=== PATIENT | female | born 1945 | race Caucasian/White ===

== ENCOUNTER 2020-08-13 01:48 | Emergency (ER) | payer OTHER, SELFPAY ==
--- NOTE | ~2020-08-13 | XR_ITS ---
XR shoulder LT min 2V DATE: 08/13/2020 02:22 INDICATION: Fall. Left shoulder pain. TECHNIQUE: 3 views COMPARISON: None FINDINGS: There is a comminuted fracture at the neck and proximal shaft of the left humerus, with 50% or greater lateral displacement of the distal humeral fracture fragment. There is diffuse prominent osteopenia. The cardiovascular clavicular and glenohumeral joints are intact. IMPRESSION: Comminuted fracture of neck and proximal shaft of left humerus Prominent osteopenia Reviewed, dictated and finalized at location A.
[2020-08-13 01:55] VITALS: BP 140/61; PULSE 78; RESP 18; TEMP 36.3; O2SAT 95
--- NOTE | 2020-08-13 01:55 | ED_ITS ---
HPI - Extremity Injury (Upper) General Chief Complaint: Extremity Injury, Upper Stated Complaint: shoulder pain History of Present Illness HPI narrative: 75 yo female with multiple medical comorbidities presents to the ED for an arm injury. She lost her balance while bending to pick something up. She fell to the side and struck her left shoulder on a door. She had severe pain in the left upper arm and was not able to get off the ground for 2 hours while she waited for her to get home. She cntinues to have severe pain and is not able to move the left shoulder. She did not hit her head in the fall. No change in chronic back pain Related Data Allergies Allergy/AdvReac Type Severity Reaction Status Date / Time amoxicillin AdvReac Unknown YEAST Verified 12/22/18 18:55 INFECTIONS Review of Systems Constitutional: Constitutional: Denies chills, Denies fever(s) and Denies weakness Eyes: Eyes: Reports no additional eye complaints Cardiovascular: Cardiovascular: Denies chest pain Respiratory: Respiratory: Denies dyspnea Gastrointestinal: Gastrointestinal: Denies nausea and Denies vomiting Genitourinary: Genitourinary: Reports no additional female genitourinary complaints Musculoskeletal: Musculoskeletal: Reports back pain (chronic) Neurologic: Denies dizziness, Denies syncope, Denies headache(s) and Denies weakness [facility] Family History Family History (Updated 11/23/15 @ 23:19 by DOCTOR UNKNOWN) Mother Family history of diabetes mellitus in first degree relative Social History Social History Gender identity (if verbalized by the patient): Female Course Vital Signs Vital signs: Vital Signs Temperature 36.3 C L 08/13/20 01:55 Pulse Rate 78 08/13/20 01:55 Respiratory Rate 18 08/13/20 01:55 Blood Pressure 140/61 08/13/20 01:55 Pulse Oximetry 95 08/13/20 01:55 Temperature 36.3 C L 08/13/20 01:55 Pulse Rate 74 08/13/20 03:02 Respiratory Rate 18 08/13/20 03:02 Blood Pressure 126/53 L 08/13/20 03:02 Pulse Oximetry 92 08/13/20 03:02 MDM - Extremity Injury (Upper) MDM Narrative Medical decision making narrative: Patient discussed with Dr. Mora. He would like her placed in a shoulder immobilizer and her will see her in clinic this week. Discharge Plan Discharge Clinical Impression: Fracture of proximal end of humerus Qualifiers: Encounter type: initial encounter Fracture type: closed Fracture morphology: other fracture Fracture alignment: displaced Laterality: left Qualified Code(s): S42.292A - Other displaced fracture of upper end of left humerus, initial e ncounter for closed fracture Patient Disposition: Home, Self-Care Condition: Stable Instructions: Proximal Humerus Fracture (ED) Follow-up/Referrals: Marcos Mora MD [Physician] - Logan Luu MD [Primary Care Provider] -
[2020-08-13 02:02] VITALS: BP 140/61; PULSE 76; O2SAT 96
[2020-08-13 03:02] VITALS: BP 126/53; PULSE 74; RESP 18; O2SAT 92
[2020-08-13] MEDS: MORPHINE SULFATE (*CRX) 4 MG/ML INJ IV PUSH (03:24)
== END 2020-08-13 04:00 | disposition home or self-care (01) ==
PROVIDERS: Emergency Provider Emergency Medicine; PCP Family Medicine Adolescent Medicine
DX: S42.352A Displaced comminuted fracture of shaft of humerus, left arm, initial encounter for closed fracture (principal); S42.292A Other displaced fracture of upper end of left humerus, initial encounter for closed fracture; W01.198A Fall on same level from slipping, tripping and stumbling with subsequent striking against other object, initial encounter
CPT/HCPCS: 73030; 96374; 99284; J2270

== ENCOUNTER 2020-10-26 08:37 | Outpatient (CLI) | payer OTHER, SELFPAY ==
--- NOTE | ~2020-10-26 | CT_ITS ---
EXAMINATION: CT shoulder LT wo con DATE: 10/26/2020 09:12 INDICATION: Proximal left humeral fracture TECHNIQUE: High resolution computed tomography (CT) of the left shoulder was performed without intrav enous contrast. Additional sagittal and coronal reconstructions were performed. Automated exposure co ntrol and iterative reconstruction technique were employed. The dose-length product was 597.03 mGy-cm . COMPARISON: None FINDINGS: Mild a comminuted fractures of the proximal metaphyseal metadiaphyseal region of the left humerus. Th ere is 40 degree posterior angulation of the oblique fracture plane. There is a small anterior sided butterfly fragment. There is negligible involvement of the posterior inferior most rim of the articul ar cortex. No involvement of the lesser greater tuberosities. There is a small amount of nonbridging callus formation along the margins of the fracture. The humeral head remains normally centered over t he left acetabulum. No other fractures identified. There is a small glenohumeral joint effusion with widening of the cephalad aspect of the glenohumeral joint space. Mild acromioclavicular osteoarthriti s. IMPRESSION: 1. Early nonbridging callus formation at the margins of a mildly comminuted oblique fracture of the p roximal metaphyseal and metadiaphyseal region of the left humerus with 40 degrees posterior angulatio n. Reviewed, dictated and finalized at location A. IMPRESSION: 1. Early nonbridging callus formation at the margins of a mildly comminuted obl ique fracture of the proximal metaphyseal and metadiaphyseal region of the left humerus with 40 degrees posterior angulation.
== END 2020-10-26 08:38 | disposition home or self-care (01) ==
PROVIDERS: PCP Family Medicine Adolescent Medicine; Visit Provider Orthopaedic Surgery
DX: S42.202D Unspecified fracture of upper end of left humerus, subsequent encounter for fracture with routine healing (principal)
CPT/HCPCS: 73200

== ENCOUNTER → 2021-03-20 11:08 | Outpatient (CLI) | payer OTHER, SELFPAY ==
--- NOTE | ~2021-03-20 | DEXA_ITS ---
Bone Density Report Name: BEV AHMADI Age: 75 Sex: Female Ethnicity: White Date of : 1945 Indication: postmenopausal; screening for osteoporosis; height loss; prior fracture; rheumatoid arthritis; Referring Provider: KEITH NUR Study: Bone densitometry was performed. Exam Date: March 20, 2021 Accession number: [id number] Bone Density: Region BMD T-score Z-score Classification AP Spine (L1-L4) 0.949 -0.9 1.5 Normal Femoral Neck (Left) 0.571 -2.5 -0.4 Osteoporosis Total Hip (Left) 0.803 -1.1 0.7 Osteopenia Femoral Neck (Right) 0.508 -3.1 -1.0 Osteoporosis Total Hip (Right) 0.746 -1.6 0.2 Osteopenia Total Hip Mean 0.775 -1.4 0.5 Osteopenia World Health Organization criteria for BMD impression classify patients as: Normal (T-score at or above -1.0), Osteopenia (T-score between -1.0 and -2.5), or Osteoporosis (T-score at or below -2.5). 10-year Fracture Risk: FRAX not reported because: Some T-score for Spine Total or Hip Total or Femoral Neck at or below -2.5 Clinical Information Provided by Patient: Has had a low trauma fracture Has rheumatoid arthritis Has used the following medications: Vitamin D Patient maximum height was 65 Menopause Age: 46 No regular weight bearing exercise Does not regularly consume dairy products Onset of menses at age 13 Number of children 2 Impression: The patient has established osteoporosis, based on the Right Femoral Neck T-score and the existence of a prior fracture. The patient has risk factors, including: previous fracture. Discussion: HIGH RISK OF FRACTURE. BONE DENSITY IS UNDESIRABLY LOW AT ONE OR MORE SKELETAL SITES, CONSISTENT WITH POSTMENOPAUSAL OSTEOPOROSIS. This patient's lowest T-score, in a patient who has previously fractured, meets the World Health Organization's (WHO) criteria for severe osteoporosis. In untreated patients, the risk of osteoporotic fracture increases approximately two-fold for each 1.0 SD decrease in T-score. Low bone density is not the only risk factor for fracture; also consider factors such as patient's age, frailty or poor health, risk of falling, risk of injury, previous osteoporotic fracture, family history of osteoporosis, cigarette smoking, low body weight, etc. Not everyone with low bone mineral density has osteoporosis; osteomalacia and other metabolic bone disorders should also be considered. Patients who have osteoporosis should be evaluated for specific diseases and conditions (secondary causes) that may cause or contribute to bone loss. The [place] [employer]ocr[employer] (AACE) and National Osteoporosis Foundation (NOF) recommend pharmacologic intervention for all postmenopausal women whose T-score is in this range. The patient should follow a healthful lifestyle (good nutrition with adequate c
== END ==
PROVIDERS: PCP Family Medicine Adolescent Medicine; Visit Provider Family Medicine Adolescent Medicine
DX: Z78.0 Asymptomatic menopausal state (principal); M81.0 Age-related osteoporosis without current pathological fracture; M85.852 Other specified disorders of bone density and structure, left thigh; M85.851 Other specified disorders of bone density and structure, right thigh
CPT/HCPCS: 77080

== ENCOUNTER → 2021-12-10 11:14 | Outpatient (CLI) | payer OTHER, SELFPAY ==
--- NOTE | ~2021-12-10 | US_ITS ---
US soft tissue head and neck 12/10/2021 11:32 Indication: Palpable area in the left neck Procedure: High-resolution ultrasound of the left neck Comparison: No prior studies for comparison. Findings: Normal heterogeneous echotexture throughout the left neck in the area of palpable concern. Impression: 1: Normal limited ultrasound of the left neck. No discrete mass identified. Reviewed, dictated and finalized at location B. Impression: 1: Normal limited ultrasound of the left neck. No discrete mass identified.
== END ==
PROVIDERS: PCP Family Medicine Adolescent Medicine; Visit Provider Physician Assistant
DX: R22.1 Localized swelling, mass and lump, neck (principal)
CPT/HCPCS: 76536

== ENCOUNTER → 2022-08-19 13:06 | Outpatient (CLI) | payer OTHER, SELFPAY ==
--- NOTE | ~2022-08-19 | MR_ITS ---
EXAMINATION: MR lumbar spine wo con DATE: 08/19/2022 14:10 INDICATION: Low back pain. Bilateral leg pain. TECHNIQUE: Magnetic resonance imaging (MRI) of the lumbar spine was performed without intravenous con trast. COMPARISON: None FINDINGS: There is 3 mm anterolisthesis of L4 on L5. There is a chronic compression fracture of T12 w ith 3/5 loss of height. There is severely decreased disc height at L1-L2 and mildly decreased disc he ight at L4-L5. There is ligamentum flavum hypertrophy at the disc levels from L1-L2 through L4-L5. Th e distal spinal cord signal intensity is normal. The conus medullaris is at T12-L1. The following dis c levels are specifically discussed: L1-L2: The disc is bulging and has an annular fissure. There is moderate right and mild left facet cary int osteoarthritis. There is mild bilateral neural foraminal stenosis. There is mild central canal st enosis. L2-L3: The disc is bulging. There is severe bilateral facet joint osteoarthritis. There is moderate b ilateral neural foraminal stenosis. There is mild central canal stenosis. L3-L4: The disc is bulging and has an annular fissure. There is severe bilateral facet joint osteoart hritis. There is moderate bilateral neural foraminal stenosis. There is severe central canal stenosis . L4-L5: The disc is bulging. There is severe bilateral facet joint osteoarthritis. There is moderate b ilateral neural foraminal stenosis. There is severe central canal stenosis. L5-S1: The disc does not extend beyond the endplate margin. There is severe bilateral facet joint ost eoarthritis. There is mild left neural foraminal stenosis. There is no central canal stenosis. IMPRESSION: 1. Severe lumbar spondylosis. Reviewed, dictated and finalized at location A.
== END ==
PROVIDERS: PCP Family Medicine Adolescent Medicine; Visit Provider Family Medicine Adolescent Medicine
DX: M54.31 Sciatica, right side (principal); M47.816 Spondylosis without myelopathy or radiculopathy, lumbar region
CPT/HCPCS: 72148

== ENCOUNTER 2024-09-29 07:58 | Emergency (ER) | payer OTHER, SELFPAY ==
--- NOTE | ~2024-09-29 | CT_ITS ---
EXAMINATION: CT abdomen pelvis w con DATE: 09/29/2024 11:10 INDICATION: Lower abdominal pain TECHNIQUE: Computed tomography (CT) of the abdomen and pelvis was performed without intravenous contr ast. The dose-length product was 1325.55 mGy-cm. Automated exposure control and iterative reconstruct ion technique were employed. COMPARISON: 12/22/2018 FINDINGS: Lung bases are unremarkable. Trace pericardial effusion. Heart size is normal. No significa nt pleural effusion. There is cirrhosis of the liver. The spleen, pancreas, left kidney are unremarka ble. There is a 4-5 mm nonobstructing right renal stone. There are cholecystectomy clips. No ureteral stones or hydronephrosis. There are small bilateral adrenal masses unchanged, consistent with benign adenomas. No free air or free fluid. Colonic diverticulosis without evidence for diverticulitis. The re is pelvic floor relaxation. No significant vascular abnormality. No lymphadenopathy. There is a ch ronic burst fracture of T12. There is severe lower thoracic and lumbar spondylosis. IMPRESSION: 1. Nonobstructing right nephrolithiasis. 2: Trace pericardial effusion. 3.: Cirrhosis of the liver. 4: Stable small adrenal adenomas. Reviewed, dictated and finalized at location A.
--- NOTE | ~2024-09-29 | XR_ITS ---
EXAMINATION: XR chest 2V DATE: 09/29/2024 11:31 INDICATION: Shortness of breath TECHNIQUE: frontal and lateral views of the chest were obtained. COMPARISON: 05/18/2017 FINDINGS: The lungs are clear with no focal airspace opacities, pulmonary edema, pleural effusion or pneumothor ax. The cardiomediastinal silhouette is normal. Chronic nonunion of a chronic fracture at the surgica l neck of the left humerus with prominent ostial lysis at the central aspect of the humeral head seco ndary to the pseudoarthrosis with the distal fragment. IMPRESSION: 1. No acute cardiopulmonary disease. 2. 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 Reviewed, dictated and finalized at location A. IMPRESSION: 1. No acute cardiopulmonary disease. 2. 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
[2024-09-29 07:52] VITALS: BP 158/79; PULSE 84; RESP 13; TEMP 36.8; O2SAT 97
--- NOTE | 2024-09-29 08:00 | ECG_ITS ---
Test Date: 2024-09-29 08:02:06 Measurements Intervals [place] Rate: 85 P: 52 NM: 164 QRS: 62 QRSD: 121 T: 26 QT: 361 QTc: 431 Interpretive Statements SINUS RHYTHM RIGHT BUNDLE BRANCH BLOCK BASELINE ARTIFACT- I, II, III, AVR, AVL, AVF, V4 ABNORMAL ECG No previous ECG available for comparison Electronically Signed On 09-29-2024 08:35:28 CDT by Hosea Flores D.O.
[2024-09-29 08:42] LABS: Basophils Percent Auto 0.7 % (0.2-1.2); Eosinophils Absolute Auto 0.1 K/mm3 (0-0.3); Eosinophils Percent Auto 1.8 % (0-4.4); Hematocrit 40.5 % (37.0-47.0); Immature Granulocyte Absolute 0.01 K/mm3 (0.00-0.031); Immature Granulocyte Percent A 0.2 % (0-0.5); Immature Platelet Fraction Pct 4.2 % (0.9-11.2); Lymphocytes Absolute Auto 1.41 K/mm3 (0.9-3.2); Lymphocytes Percent Auto 31.3 % (18.3-44.2); Mean Corpuscular HGB Conc 32.1 g/dl (32-36); Mean Corpuscular Volume 93.3 fl (80-100); Mean Platelet Volume 10.7 fl (7.4-10.4); Monocytes Absolute Auto 0.3 K/mm3 (0.1-0.6); Monocytes Percent Auto 6.4 % (2.6-8.5); Neutrophils Absolute Auto 2.7 K/mm3 (1.3-6.7); Neutrophils Percent Auto 59.6 % (45.5-73.1); Platelet Count Result 130 k/mm3 (150-375); Red Blood Count 4.34 M/mm3 (4.2-5.4); Red Cell Distribution Width 12.7 % (11.5-14.5); White Blood Count 4.5 K/mm3 (4.5-10.0)
[2024-09-29 08:49] LABS: Alanine Aminotransferase 25 U/L (6-35); Albumin Level 4.4 g/dL (3.5-5.1); Alkaline Phosphatase 123 U/L (38-126); Anion Gap 7 mmol/L (4-12); Aspartate Amino Transferase 36 U/L (14-36); Blood Urea Nitrogen 23 mg/dL (7-17); Calcium 10.3 mg/dL (8.4-10.2); Carbon Dioxide 27 mmol/L (22-30); Chloride 101 mmol/L (98-107); Estimated CRCL calculation 51 ml/min; Estimated Glomerular Filt Rate > 60; Glucose 201 mg/dL (65-110); Potassium 4.2 mmol/L (3.4-5.0); Sodium 135 mmol/L (137-145); Total Protein 7.7 g/dL (6.3-8.2)
[2024-09-29 09:03] VITALS: BP 150/67; PULSE 91; RESP 12; O2SAT 98
[2024-09-29 09:06] LABS: Partial Thromboplastin Time 24.9 Seconds (22.3-36.8)
[2024-09-29 09:10] LABS: Add Urine Microscopic? YES; Appearance Urine Clear (Clear); Bacteria Urine None Seen /hpf; Bilirubin Urine Negative (Negative); Blood Urine Negative (Negative); Color Urine Yellow (Yellow); Glucose Urine UA Negative (Negative); Ketones Urine 1+ mg/dL (Negative); Leukocyte Esterase Ur Trace LEU/UL (Negative); Nitrate Urine Negative (Negative); Non Pathogenic Casts 0-2; Protein Urine Negative (Negative); RBC Urine 0-2 /hpf (0-2); Specific Grav Ur 1.014 (1.001-1.035); Squamous Epithelial Cell Urine None Seen /hpf (Few); Urobilinogen Urine 0.2 mg/dL (<2.0); WBC Urine 0-5 /hpf (0-3)
--- OUTSIDE RECORDS SUMMARY | 2024-09-29 09:39 | XMS_ITS | Referral Summary ---
Author Organization [facility] Address [address] [place] [address] Care Team Providers Care Machine Room Operator Name Role Phone Logan Luu MD Primary Care Prov ider Allergies No known active allergies Medications HYDROcodone-ivett taminophen (NORCO) 7.5-325 mg per tablet take 1 tablet by oral route every 8 hours as needed for pain 0 0 5 Active metoprolol XL (TOPROL-XL) 100 mg 24 hr tablet take 1 tablet by oral route every day 0 0 5 Active atorvastatin (LIPITOR) 40 mg tablet take 1 tablet by oral route every day 0 0 5 Active cholecalciferol (VITAMIN D3) 2,000 unit capsule take one daily 0 0 5 Active vit C-vit A-bczytq-kyfi-l utein (PRESERVISION LUTEIN) 226 mg-200 unit -5 mg-0.8 mg capsule take one daily 0 0 7 Active metFORMIN XR (GLUCOPHAGE XR) 500 mg 24 hr tablet Take 1,000 mg by mouth 2 (two) times a day 3 7 Active BD INSULIN PEN NEEDLE UF MINI 31 gauge x 3/16 needle USE BID UTD 3 7 Active levothyroxine (SYNTHROID, LEVOTHROID) 50 mcg tablet Take 50 mcg by mouth manager legal before breakfast. Active clotrimazole 1 % creamIndication s:Tinea corporis Apply topically 2 (two) times a day 30 g 03/13/201 9 Active hydroCHLOROthia zide (HYDRODIURIL) 25 mg tablet Take 25 mg by mouth daily Active Contour Next Test Strips strip U D 0 Active folic acid (FOLVITE) 1 mg tablet Take 1 tablet (1 mg total) by mouth daily 90 tablet 3 0 Active insulin glargine U-300 conc (Toujeo SoloStar U-300 Insulin) 300 unit/mL (1.5 mL) insulin pen 77 Units nightly 0 Active methotrexate 2.5 mg tablet TAKE 8 TABLETS BY MOUTH ONCE A WEEK 96 tablet 0 Active Active Problems Problem Noted Date Diagnosed Date Advice given about 2019 novel coronavirus by tel carmencita 08/10/2019 Assessment & Plan (11/07/2019 10:25 PM CDT): You may review the current [employer] [place] [employer] Covid-19 clinical guidance for Patients with Rheumatic Diseases if you copy and paste the link below into your web browser: [email or web address] [email or web address] Of course, methotrexate should be placed on hold in the event you were to become ill and resumed only after complete recovery. Assessment & Plan (08/10/2019 5:27 PM CDT): The full impact of autoimmune disease and immunomodulatory medications on susceptibility and complications of coronavirus disease is not yet studied. Because we have agronomy teacher with this new virus we do not currently have absolute answers. Currently we are not making a blanket recommendation that all patients stop their medications during this period of uncertainty. We do not want to risk letting your disease flare, as treating a flare during this health care crisis is more difficult as well due to the immunosuppressive effects of steroids. The usual CDC precautions for minimizing coronavirus risk are appropriate. Frequently wash your hands with soap and water for at least 20 seconds. When soap and running water are unavailable, use an alcohol-based hand rub with at least 60% alcohol. Always wash hands that are visibly soiled. Avoid touching your eyes, nose, or mouth with unwashed hands. Avoid close contact with people who are sick and maintain social distancing. The CDC has recommended that ALL persons wear a fabric mask when out in public. Obviously this is a fast-moving issue and the CDC is providing regular updates as the course and extent of the epidemic is monitored. You may keep up to date at the CDC website: www.coronavirus.gov You may also find more information relevant to your questions at the [employer] webpage: arthritis.org. Click on the Coronavirus banner. It is imperative that you adhere to the [id number] orders issued for your community, especially in view of your potentially immunocompromised status. Feel free to reach out to us if you have additional questions after you review this information. Systolic murmur 05/04/2019 Assessment & Plan (05/04/2019 11:39 AM EQUIPMENT MAINTENANCE TECH): 2/6 systolic murmur appreciated; somewhat louder than previously. She has not had an echocardiogram anytime recently. History of childhood rheumatic fever reported. Schedule echocardiogram for evaluation. Encounter for administration of vaccine 01/13/20 19 Class 2 severe obesity due t o excess calories with serious comorbidity and body mass index (BMI) of 38.0 to 38.9 in adult 01/12/2019 Assessment & Plan (05/04/2019 11:27 AM EQUIPMENT MAINTENANCE TECH): An optimal BMI (body mass index) is between 20 and 25. Encourage weight loss. Each pound of weight lost unloads 3-4 pounds per square inch pressure from weight bearing joints. Diet and exercise are the keys to weight management. Assessment & Plan (01/12/2019 3:17 PM CDT): As above Type 2 diabetes mellitus wit hout complication, with long-term current use of insulin 07/07/2018 Assessment & Plan (11/07/2019 10:27 PM CDT): Management per Dr. Shepherd. Patient reports glycemic control satisfactory. Assessment & Plan (08/10/2019 5:28 PM CDT): Management per Dr. Logan Shepherd. Assessment & Plan (05/04/2019 11:35 AM EQUIPMENT MAINTENANCE TECH): Diabetic control satisfactory per Dr. Shepherd. Patient does not recall A1C result. Assessment & Plan (10/05/2018 12:00 PM CDT): Management per Dr. Shepherd Tinea corporis 07/07/2018 Assessment & Plan (07/25/2018 8:56 PM CDT): Right ankle red scaly oval/circular rash. -Apply Clotrimazole as directed. Make sure to rub it in well. Keep using medication for a week after you no longer see the rash to make sure it's completely gone. -Keep skin clean and dry. Fungus likes to grow in moist skin -Wash all of your clothes, bedding and towels that may have come in contact with infection Bilateral lower extremity edema 07/07/2018 Assessment & Plan (07/25/2018 8:35 PM CDT): -Wear compression stockings daily. -Restrict sodium intake. -Elevate legs above the level of your heart several times a day. Putting pillows under your legs while you sleep may be helpful. Primary osteoarthritis involving multiple joints 04/05/2018 Stenosing tenosynovitis of finger of right hand 09/15/2017 Assessment & Plan (09/15/2017 11:39 AM CDT): X-ray and steroid injection if symptoms progress (patient declines with present symptom level). Injury of left hand 05/22/2017 Assessment & Plan (05/22/2017 10:34 AM EQUIPMENT MAINTENANCE TECH): Fell from porch steps 05/16/2017. Suspected contusion bone; xray ordered to rule out fracture. Osteopenia of multiple sites 02/12/2017 Assessment & Plan (11/07/2019 10:27 PM CDT): Recommend update DEXA (bone density). Order provided for imaging at [facility]. Assessment & Plan (05/22/2017 10:33 AM EQUIPMENT MAINTENANCE TECH): Continue Vitamin D and calcium supplements. Recommend to start alendronate ( Fosamax) as soon as dental issues addressed. Assessment & Plan (03/26/2017 4:38 PM EQUIPMENT MAINTENANCE TECH): Discussed recent DEXA findings reported By Dr. Shepherd and his recommendations to start alendronate. Discussed bisphosphonate risk/benefit profile. She will see her dentist to rule out any major dental issues before starting Rx. Recent 25 OH Vitamin D satisfactory. Continue calcium and vitamin D. Encounter for long-term (cur rent) use of high-risk medication 11/11/2016 Assessment & Plan (11/07/2019 10:25 PM CDT): Lab Results Component Value Date WBC 8.6 09/14/2019 HGB 12.9 09/14/2019 HCT 39.9 09/14/2019 MCV 92.8 09/14/2019 LABPLAT 126 (L) 09/14/2019 Chemistry Lab Results Component Value Date SODIUM 140 09/14/2019 POTASSIUM 4.5 09/14/2019 CHLORIDE 98 09/14/2019 CO2 29 09/14/2019 ANIONGAP 13 09/14/2019 BUNSER 15 09/14/2019 CREATININE 0.61 09/14/2019 GLUCOSE 158 09/14/2019 URICACID 5.8 09/01/2014 CALCIUM 10.4 (H) 09/14/2019 CALCIUM 9.8 05/28/2017 BILITOT 0.9 09/14/2019 PROTEIN 7.4 05/28/2017 ALBUMIN 4.6 09/14/2019 ALBUMIN 3.9 05/28/2017 GFRNAA 89 09/14/2019 ALKPHOS 107 09/14/2019 AST 28 09/14/2019 ALT 33 09/14/2019 Lab Results Component Value Date SEDRATE 38 (H) 09/14/2019 Lab Results Component Value Date CRP 4.5 09/14/2019 Lab Results Component Value Date RF 8 11/11/2016 SEDRATE 38 (H) 09/14/2019 Patient on medications requiring periodic lab monitoring for drug safety. Update lab as per orders written. Assessment & Plan (08/10/2019 5:27 PM CDT): Lab Results Component Value Date WBC 9.2 05/04/2019 HGB 12.5 05/04/2019 HCT 39.5 05/04/2019 MCV 97.5 (H) 05/04/2019 LABPLAT 145 (L) 05/04/2019 Chemistry Lab Results Component Value Date SODIUM 141 05/04/2019 POTASSIUM 4.6 05/04/2019 CHLORIDE 100 05/04/2019 CO2 29 05/04/2019 ANIONGAP 12 05/04/2019 BUNSER 15 05/04/2019 CREATININE 0.58 (L) 05/04/2019 GLUCOSE 93 05/04/2019 URICACID 5.8 09/01/2014 CALCIUM 10.2 05/04/2019 CALCIUM 9.8 05/28/2017 BILITOT 0.9 05/04/2019 PROTEIN 7.4 05/28/2017 ALBUMIN 4.2 05/04/2019 ALBUMIN 3.9 05/28/2017 GFRNAA 91 05/04/2019 ALKPHOS 139 (H) 05/04/2019 AST 35 05/04/2019 ALT 29 05/04/2019 Lab Results Component Value Date SEDRATE 65 (H) 05/04/2019 Lab Results Component Value Date CRP 6.1 05/04/2019 Patient on medications requiring periodic lab monitoring for drug safety. Update lab as per orders written. Assessment & Plan (05/04/2019 11:28 AM EQUIPMENT MAINTENANCE TECH): Patient on immunosuppressive medications requiring periodic lab monitoring for drug safety. Update lab as per orders written. Assessment & Plan (01/12/2019 3:13 PM CDT): Patient on immunosuppressive medications requiring periodic lab monitoring for drug safety. Assessment & Plan (10/05/2018 11:59 AM CDT): Patient on immunosuppressive medications requiring periodic lab monitoring for drug safety. Update lab as per orders written. Assessment & Plan (07/25/2018 8:36 PM CDT): Patient on immunosuppressive medications requiring periodic lab monitoring for drug safety. Assessment & Plan (04/05/2018 11:48 AM EQUIPMENT MAINTENANCE TECH): Patient on immunosuppressive medications requiring periodic lab monitoring for drug safety. Update lab as per orders written. Assessment & Plan (01/04/2018 11:33 AM CDT): Patient on immunosuppressive medications requiring periodic lab monitoring for drug safety. Assessment & Plan (09/15/2017 11:33 AM CDT): Patient on immunosuppressive medications requiring periodic lab monitoring for drug safety. Update lab as per orders written. Assessment & Plan (05/22/2017 10:34 AM EQUIPMENT MAINTENANCE TECH): Patient on immunosuppressive medications requiring periodic lab monitoring for drug safety. Update lab as per orders written. Assessment & Plan (03/26/2017 4:35 PM EQUIPMENT MAINTENANCE TECH): Patient on immunosuppressive medications requiring periodic lab monitoring for drug safety. Update lab as per orders written. Assessment & Plan (11/11/2016 10:57 AM CDT): Patient on immunosuppressive medications requiring periodic lab monitoring for drug safety. Update lab as per orders written. Hypothyroidism due to acquired atrophy of thyroi d 01/25/2016 Overview (07/31/2016): Hypothyroidism Assessment & Plan (11/07/2019 10:26 PM CDT): Lab Results Component Value Date TSH 2.79 05/04/2019 Assessment & Plan (05/04/2019 11:29 AM EQUIPMENT MAINTENANCE TECH): Lab Results Component Value Date TSH 3.67 01/25/2016 Update lab as per orders. Assessment & Plan (10/05/2018 11:59 AM CDT): Lab Results Component Value Date TSH 3.67 01/25/2016 Assessment & Plan (02/03/2018 2:39 PM CDT): Recently started on levothyroxine Rheumatoid arthritis without rheumatoid factor, multiple sites 10/11/2014 Overview (04/05/2018): Images from the original note were not included. Extremity Sonography September 28, 2014, 15:20 at [facility] Final View Details MICHAEL TREJO M.D. FINAL REPORT ACC# Date Time Exam [id number] Sep 28, 2014 15:20:00 [id number] Extremity Sono Complete L [id number] Sep 28, 2014 15:20:00 [id number] Extremity Sono Complete R EXAMINATION: Bilateral extremity sonogram complete. HISTORY: 69-year-old female with a several month history of hand and wrist swelling. FINDINGS: Right hand and wrist: There is moderate synovial hypertrophy of extensor compartment 4, the radioulnar joint overlying the ulna, the extensor carpi ulnaris tendon sheath, the proximal and mid compartments as well as mild to moderate synovial hypertrophy of the second and third MCP joints. The PIP joints appear normal. There is a bony erosion of the second MCP head. There are scattered bony irregularities some of which may represent tiny erosions.. There is mild to moderate increased flow on color Doppler of most of the above described areas consistent with tenosynovitis and synovitis. Left hand and wrist: There is moderate synovial hypertrophy of extensor compartment 4, the left extensor carpi ulnaris tendon sheath, the proximal and mid compartments as well as mild to moderate synovial hypertrophy of the second and third MCP joints. PIP joints appear normal. There are scattered bony represent tiny erosions. There is mild to moderate increased flow on color Doppler of the above described areas consistent with tenosynovitis and synovitis IMPRESSION: Sonographic findings consistent with tenosynovitis and synovitis involving both hands and wrists. Scattered bony irregularities and erosions. Requested By: Dictated By: MICHAEL TREJO M.D. on Sep 28 2014 3:54PM Assessment & Plan (11/07/2019 10:24 PM CDT): RA clinically stable since resuming methotrexate. She feels her symptoms adequately controlled (she has resumed bowling) though she has continued synovitis visible on exam (L>R hand/wrist noted). She does not want to pursue additional antirheumatic therapy (biologic response modifier) at this time though we have discussed and recommended same in the past. We did review today ACR evidence-based guidelines regarding continued treatment in the setting of the COVID-19 pandemic. Se denies medication side effects associated with methotrexate. Patient denies fever, rash, aphthous ulcers, dry eyes, dry mouth, hair loss, dysphagia, pleurisy, shortness of breath, nausea, vomiting, diarrhea, dysuria, hematuria, seizures, syncope, Raynaud's. Clinically stable on present med regimen. Continue same. Update lab as per orders. Assessment & Plan (08/10/2019 5:26 PM CDT): RA clinically stable. She has been off of methotrexate the last two weeks as she misunderstood our recommendations that additional medications would be needed to imply that methotrexate was ineffective. She will resume same until we can make further med adjustments. [facility] declined to approve her recommended follow up ultrasound hands and wrists, though we have advised that documentation of progressive erosive changes or worsened synovitis would impact our decision-tree regarding additional immunomodulatory therapies (likely a biologic respone modifier). For the time being, in view of the current Covid-19 pandemic will defer additional immunosuppressive therapies. She will resume methotrexate 20 mg weekly. We will update lab and imaging as per orders. X-rays of the hands/wrists ordered as a potential tool to address the question of progressive erosions likely with appeal for ultrasound or MRI hands if further documentation required. Patient understands same. She is currently scheduled for MR lumbar spine and echocardiogram 09/14/2019 and will defer today's lab and imaging orders until that date to allow the peak of the Covid-19 surge to pass and subside. Assessment & Plan (05/04/2019 11:37 AM EQUIPMENT MAINTENANCE TECH): Seronegative rheumatoid arthritis clinically stable on current methotrexate regimen. No med side effects reported. Rapid3 14.7 (skewed by pain associated with lumbar degenerative disc disease; see below). Update lab as per orders. . Continue current med regimen unchanged. Assessment & Plan (01/12/2019 3:16 PM CDT): RA clinically stable on current medication regimen. Denies medication side effects. Ongoing low pain (DDD). Unable to do physical therapy due to finances and lack of transportation. Reviewed exercises she can do at home. Rapid3:12.7. Seasonal influenza vaccine administered today. Assessment & Plan (10/05/2018 11:58 AM CDT): Scheduled follow up rheumatoid arthritis. Generally feels well. No med side effect reported. Rapid3 18.7 skewed by lower back pain radiating to both legs. Synovitis stable on exam. Update lab as per orders. Continue current methotrexate 20 mg (8 x 2.65 mg tab) weekly and folic acid 1 mg daily. Assessment & Plan (07/25/2018 8:52 PM CDT): Rheumatoid arthritis follow up clinically stable on current medication regimen. No side effects reported. Rapid3: 13.7, accelerated by DDD of the lumbar spine. Continue present regimen. Assessment & Plan (04/05/2018 11:50 AM EQUIPMENT MAINTENANCE TECH): Scheduled follow up rheumatoid arthritis. Generally feels well. No med side effect reported. Clinically stable. Continue same. Assessment & Plan (02/03/2018 2:37 PM CDT): Rheumatoid arthritis follow up with continued improvement on current medication regimen. No side effects reported. Rapid3: 10.3, score skewed by DDD of the lumbar spine. Continue present regimen. Assessment & Plan (09/15/2017 11:31 AM CDT): Scheduled follow up rheumatoid arthritis. Generally feels well. No med side effect reported. Rapid3 17.3. Pain score escalated by degenerative disc disease lumbar spine. Notes occasional hot flashes since methotrexate dose increased to 20 mg weekly. Tolerates same. Assessment & Plan (05/22/2017 10:32 AM EQUIPMENT MAINTENANCE TECH): Seronegative RA with continued synovitis MCP, PIP. Increase methotrexate to 8 x 2.5 mg tab weekly (20 mg weekly). Continue hydroxychloroquine. Update lab today with repeat lab again 1 month. Assessment & Plan (03/26/2017 4:36 PM EQUIPMENT MAINTENANCE TECH): Improving with recent addition methotrexate. Rapid3 14.8. Increase methotrexate to 15 mg weekly (6 x 2.5 mg tab once weekly). Continue folic acid. Reduce hydroxychloroquine as previously advised to 200 mg daily. Assessment & Plan (02/12/2017 10:33 AM CDT): Continued synovitis on exam. Currently on hydroxychloroquine only. Intolerant sulfasalazine. Will reevaluate possible additional DMARD therapy. Possible methotrexate if liver enzymes stable (history of fatty liver). Otherwise may need consider a TNF inhibitor. .METHOTREXATE PATIENT INFORMATION Methotrexate is one of the most effective and commonly used medications in the treatment of rheumatoid arthritis and other forms of inflammatory arthritis, and also may be used to treat lupus, inflammatory myositis, vasculitis, and some forms of childhood arthritis. It is often used in combination with other medications to treat arthritis. It is known as a disease-modifying anti-rheumatic drug (DMARD), because it not only decreases the pain and swelling of arthritis, but it also can decrease damage to joints and long-term disability HOW TO TAKE IT: Methotrexate comes either as pills or as a subcutaneous injection. Methotrexate is usually taken as a single dose once per week, although occasionally the dose is split into two doses, taken once per week, to improve absorption or avoid side effects. Your doctor also may prescribe a folic acid (or folate) vitamin supplement to decrease the chance of side effects. Methotrexate should not be taken if kidney or liver function is not normal. Alcohol significantly increases the risk for liver damage while taking methotrexate, so alcohol should be avoided. Regular laboratory monitoring is required to monitor blood counts and your liver while taking methotrexate. Improvements in arthritis and other conditions usually are first seen in three - six weeks. The full benefit of this drug may not be seen until after 12 weeks of treatment. SIDE EFFECTS: Methotrexate can lower the ability of your immune system to fight infections. If you develop symptoms of an infection while using this medication, you should stop it and contact your doctor. The most common side effects are gastrointestinal upset and elevations of liver function tests. About 1 - 3% of patients develop mouth sores (called stomatitis), rash, diarrhea, and abnormalities in blood counts. Some side effects do not cause symptoms, so it is important to have routine blood tests performed every 8 - 12 weeks. Methotrexate may cause cirrhosis (scarring) of the liver, but this side effect is rare and most likely to occur in patients who already have liver problems or are using alcohol or taking other drugs that are toxic to the liver. Lung problems (persistent cough or unexplained shortness of breath) can occur rarely when taking methotrexate. Slow hair loss is seen in some patients, but hair grows back when the person stops taking this medication. This can often be managed by taking folic acid. It is important to remember that most patients do not experience side effects, and that, for those who do, many of the minor side effects will improve with time. TELL YOUR DOCTOR: You should contact your doctor of you develop symptoms of an infection, such as a fever or cough, or if you think you are having any side effects. Be sure to let your doctor know if you are , planning to get , or if you are . Methotrexate treatment should be discontinued for at least three months before attempting to become . Even though methotrexate should not be taken during , it does not reduce a woman s chance of becoming in the future. Men taking methotrexate should talk to their physician prior to attempts to conceive. If you are planning on having surgery or will be receiving chemotherapy or radiation therapy, talk to your doctor first. Updated June 2016 by Marcos Ferris MD and reviewed by the [employer] [place] [employer] Committee on Communications and MarketingThis patient fact sheet is provided for general education only. Individuals should consult a qualified health care provider for professional medical advice, diagnosis and treatment of a medical or health condition. 2017 [employer] [place] [employer] - See more at: [email or web address] TNF INHIBITOR PATIENT INFORMATION: TNF inhibitors are a type of drug used worldwide to treat inflammatory conditions such as rheumatoid arthritis (RA), psoriatic arthritis, juvenile arthritis, inflammatory bowel disease (Crohn s and ulcerative colitis), ankylosing spondylitis, and psoriasis. They reduce inflammation and stop disease progression by targeting an inflammation-causing substance called Tumor Necrosis Factor (TNF). In healthy individuals, excess TNF in the blood is blocked naturally, but in those who have rheumatic conditions, higher levels of TNF in the blood lead to more inflammation and persistent symptoms. They can alter a disease s effect on the body by controlling inflammation in the joints, gastrointestinal tract, and skin. There are different TNF inhibitors that have been approved by the U.S. Food and Drug Administration for the treatment of rheumatic diseases. To decrease side effects and costs, most patients with mild or moderate disease may be treated with methotrexate before adding or switching to a TNF inhibitor. These agents can be used by themselves or in combination with other medications such as prednisone, methotrexate, hydroxychloroquine, leflunomide, or sulfasalazine. HOW TO TAKE IT: TNF inhibitors may be given by injection under the skin or by infusion into the vein. There are pamphlets and videos that can teach you how to give yourself an injection under the skin. Physicians, nurses, and pharmacists can also teach you how to give the injection. The medicine can be injected into the thigh or abdomen. The site of injection should be rotated so the same site is not used multiple times. Infliximab and golimumab infusions are administered at a doctor s office or an infusion center. These treatments take up to four hours. The time that it takes for the medication to have an effect may vary by patient. Most patients have reported a change in their symptoms after two or three doses, but it usually takes three months to see the full benefit. SIDE EFFECTS: The most common side effect seen with the injectable drugs are skin reactions, commonly referred to as i njection site reactions. The patients usually complain of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
--- OUTSIDE RECORDS SUMMARY | 2024-09-29 09:39 | XMS_ITS | Encounter Summary ---
Author Organization [facility] Healthcare Address [address] [place] [address] Care Team Providers Care Last Cleaner Name Role Phone Logan Luu MD Primary Care Prov ider Reason for Visit * Reason Onset Date Comments Prescreening 09/12/2019 1. no 2. no 4. n o Encounter Details Date Type Department Care Team (Late st Contact Info) Description 09/12/2019 Telephone [facility] - Imaging [address] [place] [address] Abril Jacobson, RT Prescreening (1. no 2. no 4. no) Social History Tobacco Use Types Packs/Day Years Used Date Smoking Tobacco: Never Smokeless Tobacco: Never Alcohol Use Standard Drinks/Week Comments No 0 (1 standard drink = 0.6 oz pur e alcohol) PHQ-2 Answer Date Recorded PHQ-2 Score 0 12/16/2018 Comments Unknown Sex and Gender Information Value Date Recorded Sex Assigned at Not on file Legal Sex Female 8:53 PM SUPERVISOR WRAPPING ROOM Gender Identity Not on file Sexual Orientation Not on file documented as of this encounter Plan of Treatment Not on file documented as of this encounter Visit Diagnoses Not on filedocumented in this encounter Care Teams Last Cleaner Relationship Specialty Start Date End Date Logan Luu MD [address] [place] [address] PCP - General 07/25/16 documented as of this encounter
--- OUTSIDE RECORDS SUMMARY | 2024-09-29 09:39 | XMS_ITS | Clinical Summary ---
Author Organization [facility] Address [address] [place] [address] Care Team Providers Care Locomotive Lubricating Systems Clerk Name Role Phone Logan Luu MD Primary [...] daily 0 0 5 Active vit C-vit U-pexzpd-otsw-l utein (PRESERVISION LUTEIN) 226 mg-200 unit -5 [...] mcg tablet Take 50 mcg by mouth early childhood coordinator before breakfast. Active clotrimazole 1 % creamIndication [...] PM CDT): You may review the current [employer] Covid-19 clinical guidance for Patients with Rheumatic Diseases if you copy and paste the link below into your web browser: [email or web address] ely-P [email or web address]-oyqk-Mvbyrcyhy-Diseases.pdf Of course, methotrexate should be placed on hold in the event you were to become ill and resumed only after complete recovery. Assessment & Plan (08/10/2019 5:27 PM CDT): The full impact of autoimmune disease and immunomodulatory medications on susceptibility and complications of coronavirus disease is not yet studied. Because we have certified professional ergonomist with this new virus we do not [...] is imperative that you adhere to the htvx-tc-wgte orders issued for your community, especially in view of your potentially immunocompromised status. Feel free to reach out to us if you have additional questions after you review this information. Systolic murmur 05/04/2019 Assessment & Plan (05/04/2019 11:39 AM AIRLINE MECHANIC): 2/6 systolic murmur appreciated; somewhat louder than previously. She has not had an echocardiogram anytime recently. History of childhood rheumatic fever reported. Schedule echocardiogram for evaluation. Encounter for administration of vaccine 01/13/20 19 Class 2 severe obesity due t o excess calories with serious comorbidity and body mass index (BMI) of 38.0 to 38.9 in adult 01/12/2019 Assessment & Plan (05/04/2019 11:27 AM AIRLINE MECHANIC): An optimal BMI (body mass index) is [...] Shepherd. Assessment & Plan (05/04/2019 11:35 AM AIRLINE MECHANIC): Diabetic control satisfactory per Dr. Shepherd. Patient [...] 05/22/2017 Assessment & Plan (05/22/2017 10:34 AM AIRLINE MECHANIC): Fell from porch steps 05/16/2017. Suspected contusion bone; xray ordered to rule out fracture. Osteopenia of multiple sites 02/12/2017 Assessment & Plan (11/07/2019 10:27 PM CDT): Recommend update DEXA (bone density). Order provided for imaging at [facility]. Assessment & Plan (05/22/2017 10:33 AM AIRLINE MECHANIC): Continue Vitamin D and calcium supplements. Recommend to start alendronate ( Fosamax) as soon as dental issues addressed. Assessment & Plan (03/26/2017 4:38 PM AIRLINE MECHANIC): Discussed recent DEXA findings reported By Dr. [...] written. Assessment & Plan (05/04/2019 11:28 AM AIRLINE MECHANIC): Patient on immunosuppressive medications requiring periodic lab [...] safety. Assessment & Plan (04/05/2018 11:48 AM AIRLINE MECHANIC): Patient on immunosuppressive medications requiring periodic lab [...] written. Assessment & Plan (05/22/2017 10:34 AM AIRLINE MECHANIC): Patient on immunosuppressive medications requiring periodic lab monitoring for drug safety. Update lab as per orders written. Assessment & Plan (03/26/2017 4:35 PM AIRLINE MECHANIC): Patient on immunosuppressive medications requiring periodic lab [...] 05/04/2019 Assessment & Plan (05/04/2019 11:29 AM AIRLINE MECHANIC): Lab Results Component Value Date TSH 3.67 [...] Extremity Sonography September 28, 2014, 15:20 at [facility] Final View Details MICHAEL TREJO M.D. FINAL REPORT ACC# Date Time Exam [id number] Sep 28, 2014 15:20:00 [id number] Extremity Sono Complete L [id number] Sep 28, 2014 15:20:00 [id number] Extremity Sono Complete R EXAMINATION: Bilateral extremity [...] subside. Assessment & Plan (05/04/2019 11:37 AM AIRLINE MECHANIC): Seronegative rheumatoid arthritis clinically stable on current [...] regimen. Assessment & Plan (04/05/2018 11:50 AM AIRLINE MECHANIC): Scheduled follow up rheumatoid arthritis. Generally feels [...] same. Assessment & Plan (05/22/2017 10:32 AM AIRLINE MECHANIC): Seronegative RA with continued synovitis MCP, PIP. Increase methotrexate to 8 x 2.5 mg tab weekly (20 mg weekly). Continue hydroxychloroquine. Update lab today with repeat lab again 1 month. Assessment & Plan (03/26/2017 4:36 PM AIRLINE MECHANIC): Improving with recent addition methotrexate. Rapid3 14.8. [...] Marcos Ferris MD and reviewed by the [employer] Committee on Communications and MarketingThis patient fact sheet is provided for general education only. Individuals should consult a qualified health care provider for professional medical advice, diagnosis and treatment of a medical or health condition. 2017 [employer] - See more at: [...] Melissa Acharya MD, and reviewed by the [employer] on Communications and Marketing. This information is provided for general education only. Individuals should consult a qualified health care provider for professional medical advice, diagnosis and treatment of a medical or health condition. 2017 [employer] See more at: https://[email or web address].org/I-Am-A/Patient-[email or web address]/Treatments/TNF-Inhibitors# [...] included. MRI Lumbar Spine WO Contrast Order: [id number] Status: Final result Visible to patient: No (Not Released) Dx: Degeneration of intervertebral disc o... Details Reading Physician Reading Date Result Priority Chantelle Márquez MD [phone] 09/14/2019 Narrative & Impression MRI of lumbar [...] 11:53 Assessment & Plan (05/04/2019 11:27 AM AIRLINE MECHANIC): Intractable lower back pain. No improvement with current med regimen; exercise regimen. Will schedule MR lumbar spine at [facility]. Assessment & Plan (01/12/2019 3:13 PM CDT): [...] degneration. Assessment & Plan (05/22/2017 10:35 AM AIRLINE MECHANIC): Continue symptom management. Efforts at weight loss [...] PND. Assessment & Plan (05/04/2019 11:28 AM AIRLINE MECHANIC): Vitals BP 138/72 (BP Location: Left arm, [...] PCV 13 01/05/2015 Pneumococcal Polysaccharide PPV23 01/25/2016 Surgical History Surgery Date Site/Laterality Comments NECK SURGERY Neck Surgery SECTION OTHER SURGICAL HISTORY [place] Surgery SECTION KNEE ARTHROPLASTY Knee replacement KNEE ARTHROPLASTY Knee replacement CARPAL TUNNEL RELEASE Left Carpal tunnel release Family History Medical History Relation Name Comments Stroke Brother Stroke; Cancer Father cancer; Cause o f : cancer Coronary artery disease Mother Kristina nary artery disease; Diabetes Mother Diabetes mellit us; Hypertension Mother Hypertension; Other Mother heart issues; C ause of : heart issues Relation Name Status Comments Brother Father (Age 88) Mother (Age 72) Social History Tobacco Use Types Packs/Day Years Used Date Smoking Tobacco: Never Smokeless Tobacco: Never Alcohol Use Standard Drinks/Week Comments No 0 (1 standard drink = 0.6 oz pur e alcohol) PHQ-2 Answer Date Recorded PHQ-2 Score 0 12/16/2018 Comments Unknown Sex and Gender Information Value Date Recorded Sex Assigned at Not on file Legal Sex Female 8:53 PM AIRLINE MECHANIC Gender Identity Not on file Sexual Orientation Not on file Obstetrics History Last Filed Vital Signs Vital Sign Reading Time Taken Comments Blood Pressure 170/80 11/07/2019 10:14 AM CDT Pulse 79 11/07/2019 10:14 AM CDT Temperature 36.9 C (98.4 F) 05/04/2019 10:45 AM AIRLINE MECHANIC Respiratory Rate 18 05/04/2019 10:45 AM AIRLINE MECHANIC Oxygen Saturation 92% 06/23/2016 11:42 AM AIRLINE MECHANIC Inhaled Oxygen Concentration - - Weight 102.5 kg (226 lb) 11/07/2019 10:14 AM CDT Height 162.6 cm (5' 4) 11/07/2019 10:14 AM CDT Body Mass Index 38.79 11/07/2019 10:14 AM CDT Plan of Treatment Not on file Insurance [facility] Care Teams Locomotive Lubricating Systems Clerk Relationship Specialty Start Date End Date Logan Luu MD [address] [place] [id number] PCP - General 07/25/16
--- OUTSIDE RECORDS SUMMARY | 2024-09-29 09:39 | XMS_ITS | Encounter Summary ---
Author Organization [facility] Address [address] [place] [address] Phone Care Team Providers Care Fitness Consultant Name Role Phone Logan Luu MD Primary Care Prov ider Encounter Details Date Type Department Care Team (Late st Contact Info) Description 09/15/2017 Orders Only [facility] ProviderZach MD [address] [place] [id number] Social History Tobacco Use Types Packs/Day Years Used Date Smoking Tobacco: Never Smokeless Tobacco: Never Alcohol Use Standard Drinks/Week Comments No 0 (1 standard drink = 0.6 oz pur e alcohol) Comments Unknown Sex and Gender Information Value Date Recorded Sex Assigned at Not on file Legal Sex Female 8:53 PM MANAGER UTILITIES Gender Identity Not on file Sexual Orientation Not on file documented as of this encounter Plan of Treatment Not on file documented as of this encounter Procedures Procedure Name Priority Date/Time Associated Diagnosis Comments DISCHARGE LABORATORY CUMULATIVE REPORT 09/15/2017 12:00 AM CDT documented in this encounter Results * DISCHARGE LABORATORY CUMULATIVE REPORT (09/15/2017 12:00 AM CDT) Narrative 09/15/2017 12:00 AM CDT Ordered by an unspecified provider. Historical Provider LAB BLOOD ORDERABLES Demetra l Result documented in this encounter Visit Diagnoses Not on filedocumented in this encounter Care Teams Fitness Consultant Relationship Specialty Start Date End Date Logan Luu MD [address] [place] [address] PCP - General 07/25/16 documented as of this encounter
--- OUTSIDE RECORDS SUMMARY | 2024-09-29 09:40 | XMS_ITS | Continuity of Care Document ---
Author Organization [facility] Address [address] [place] [address] [facility]ive [facility] [address] [place] [address] Phone Care Team Providers Care Registered Client Associate Name Role Phone Hedennise Vignesh Unavailable Unavailable Procedures Procedure Date Eye Exam, New Patient Advance Directives Directive Yes / No Effective Date File Name No Information Encounters Encounter Description Practice Location Reason(s) For Visit Diagnoses Date Provider Providers Copied on Encounter [facility], [id number] [place] [address] [address], [place], [place], [id number], [place] tel:[phone] [facility] No Information 6-200 [address] Des[address] Vignesh. [address] [facility] [address], [place], [address], [place]. tel:[phone] Family History Family Member Type Diagnosis Age At Onset No Information Payers Payer name Insurance type Covered libertarian ID Authoriza tion(s) No Information Social History Type Description Quantity Date Captured Comments Sex Female Smoking Status No Information Chief Complaint And Reason For Visit No Information Reason For Referral Reason For Referral No Information History Of Present Illness Encounter Date Complaint History Of Prese nt Illness No Information Functional Status Date Functional Assessmen t No Information Instructions Date Instruction Additional Infor mation No Information Assessments Type Assessment Date No Information Patient Care Teams Name Effective Dates (start - stop) Status Members No Information
--- NOTE | 2024-09-29 10:51 | ED_ITS ---
HPI - General Adult General Chief complaint: Weakness Stated complaint: weakness Time Seen by Provider: 09/29/24 08:02 History of Present Illness HPI narrative: Patient is a 79-year-old female who presents ER after having an episode of sharp lower abdominal pain associated with urinary incontinence. She then began to feel more weak and shaky. She called EMS. Symptoms resolved upon arrival here. No nausea vomiting. History kidney stones in the past. No recent dysuria or hematuria. Denies fevers or chills or sweats. Related Data Home Medications ?Medication ?Instructions ?Recorded ?Confirmed ?Last Taken ?Type folic acid 400 mcg tablet 0.4 mg PO BID 08/25/23 09/26/24 Unknown History Vitamin C PO 09/26/24 09/26/24 Unknown History Vitamin E PO 09/26/24 09/26/24 Unknown History Allergies Allergy/AdvReac Type Severity Reaction Status Date / Time diclofenac AdvReac Intermediate Dizziness Verified 09/26/24 11:13 duloxetine AdvReac Intermediate nausea and Verified 09/26/24 11:13 diarrhea indomethacin AdvReac Intermediate Headache Verified 09/26/24 11:13 amoxicillin AdvReac Unknown YEAST Verified 09/26/24 11:13 INFECTIONS [facility] Surgical History Surgical History History of carpal tunnel surgery of left wrist 2015 History of section x2 History of cholecystectomy 1995 History of hemorrhoidectomy History of lumbar surgery (09/2022) 3 level laminectomy, foraminotomy and foraminal decompression History of total bilateral knee replacement Left 2011, Right 2012 Family History Family History Mother Family history of diabetes mellitus in first degree relative Diabetes mellitus Heart disease Daughter Asthma Sibling Cerebrovascular accident Social History Social History Smoking status: Never smoker Second hand tobacco smoke exposure: No Alcohol intake: never Substance use: never Substance use type: does not use Lack of Transportation: No Lack of Food: Never True Current Housing: I Have Housing Concerned About Future Housing: No Difficulty Paying Gas/Electric Bills: No Difficulty Paying for Meds: No Currently Unemployed: No Education: High School Diploma/GED Difficulty w/ Childcare or Family Care: No Living arrangements: with family Occupation/Education: retired Gender identity (if verbalized by the patient): Female Sexual Orientation (if Verbalized by the Patient): Straight or Heterosexual Spiritual care concerns: No Agree to blood products: Yes Exam 2 Narrative: GENERAL: Well-appearing, well-nourished, and in no acute distress. HEAD: Normocephalic, atraumatic. ENT: Mucous membranes moist. NECK: Supple. CHEST: Clear to auscultation. No respiratory distress. HEART: Regular rate and rhythm. Normal peripheral pulses. ABDOMEN: Soft, nontender, nondistended. EXTREMITIES: Normal range of motion. No edema. SKIN: Warm, dry, no rash. NEURO: Alert and oriented x3. PSYCH: Normal mood and affect. Course Course Emergency Course: Unremarkable evaluation. No UTI. No intra-abdominal pathology. Appropriate for discharge home. Vital Signs Vital signs: Vital Signs Temperature 98.2 F 09/29/24 07:52 Pulse Rate 84 09/29/24 07:52 Respiratory Rate 13 09/29/24 07:52 Blood Pressure 158/79 H 09/29/24 07:52 Pulse Oximetry 97 09/29/24 07:52 Oxygen Delivery Room Air 09/29/24 07:52 Temperature 98.2 F 09/29/24 07:52 Pulse Rate 91 09/29/24 09:03 Respiratory Rate 12 09/29/24 09:03 Blood Pressure 150/67 H 09/29/24 09:03 Pulse Oximetry 98 09/29/24 09:03 Oxygen Delivery Room Air 09/29/24 07:52 Medical Decision Making Vital Signs Vital Signs: Vital Signs Temperature 98.2 F 09/29/24 07:52 Pulse Rate 84 09/29/24 07:52 Respiratory Rate 13 09/29/24 07:52 Blood Pressure 158/79 H 09/29/24 07:52 Pulse Oximetry 97 09/29/24 07:52 Oxygen Delivery Room Air 09/29/24 07:52 Temperature 98.2 F 09/29/24 07:52 Pulse Rate 91 09/29/24 09:03 Respiratory Rate 12 09/29/24 09:03 Blood Pressure 150/67 H 09/29/24 09:03 Pulse Oximetry 98 09/29/24 09:03 Oxygen Delivery Room Air 09/29/24 07:52 Lab Data 09/29/24 08:22 09/29/24 08:22 Labs: Lab Results 09/29/24 09/29/24 Range/Units 08:22 08:58 WBC 4.5 (4.5-10.0) K/mm3 RBC 4.34 (4.2-5.4) M/mm3 Hgb 13.0 (12.0-15.0) g/dL Hct 40.5 (37.0-47.0) % MCV 93.3 (80-100) fl MCH 30.0 (26-34) pg MCHC 32.1 (32-36) g/dl RDW 12.7 (11.5-14.5) % Plt Count 130 L (150-375) k/mm3 MPV 10.7 H (7.4-10.4) fl Immature Gran % (Auto) 0.2 (0-0.5) % Neut % (Auto) 59.6 (45.5-73.1) % Lymph % (Auto) 31.3 (18.3-44.2) % [place] % (Auto) 6.4 (2.6-8.5) % Eos % (Auto) 1.8 (0-4.4) % Baso % (Auto) 0.7 (0.2-1.2) % Lymph # (Auto) 1.41 (0.9-3.2) K/mm3 [place] # (Auto) 0.3 (0.1-0.6) K/mm3 Eos # (Auto) 0.1 (0-0.3) K/mm3 Baso # (Auto) 0.0 (0.0-0.1) K/mm3 Abs Immat Gran (auto) 0.01 (0.00-0.031) K/mm3 Absolute Neuts (auto) 2.7 (1.3-6.7) K/mm3 Absolute Nucleated RBC 0.000 (0.0-0.012) K/mm3 Nucleated RBC % 0.0 (0.0-0.2) % % Immature Plt Fraction 4.2 (0.9-11.2) % PT 13.0 (11.1-14.7) Seconds INR 1.0 APTT 24.9 (22.3-36.8) Seconds Sodium 135 L (137-145) mmol/L Potassium 4.2 (3.4-5.0) mmol/L Chloride 101 (98-107) mmol/L Carbon Dioxide 27 (22-30) mmol/L Anion Gap 7 (4-12) mmol/L BUN 23 H (7-17) mg/dL Creatinine 0.85 (0.7-1.0) mg/dL Estim Creat Clear Calc 51 ml/min Estimated GFR > 60 (59 - ) Glucose 201 H (65-110) mg/dL Calcium 10.3 H (8.4-10.2) mg/dL Total Bilirubin 1.0 (0.2-1.3) mg/dL AST 36 (14-36) U/L ALT 25 (6-35) U/L Alkaline Phosphatase 123 (38-126) U/L Total Protein 7.7 (6.3-8.2) g/dL Albumin 4.4 (3.5-5.1) g/dL Urine Color Yellow (Yellow) Urine Appearance Clear (Clear) Urine pH 7.0 (5.0-9.0) Ur Specific [place] 1.014 (1.001-1.035) Urine Protein Negative (Negative) mg/dL Urine Glucose (UA) Negative (Negative) mg/dL Urine Ketones 1+ H (Negative) mg/dL Ur Blood (Man) Negative (Negative) Urine Nitrate Negative (Negative) Urine Bilirubin Negative (Negative) Urine Urobilinogen 0.2 (<2.0) mg/dL Leukocyte Esterase Rfl Trace H (Negative) MARIBETH/UL Urine RBC 0-2 (0-2) /hpf Urine WBC 0-5 (0-3) /hpf Ur Squamous Epith Cells None seen (Few) /hpf Urine Bacteria None seen /hpf Urine Casts 0-2 Imaging Data Radiologist's impression: ITS Impressions Abdomen/Pelvis CT 09/29/24 11:14 IMPRESSION: 1. Nonobstructing right nephrolithiasis. 2: Trace pericardial effusion. 3.: Cirrhosis of the liver. 4: Stable small adrenal adenomas. Chest X-Ray 09/29/24 11:33 IMPRESSION: 1. No acute cardiopulmonary disease. 2. 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 ECG Data EKG #1: ECG completion date: 09/29/24 ECG completion time: 08:02 EKG Interpretation: normal rate (85), sinus rhythm and RBBB Discharge Plan Discharge Clinical Impression: Weakness Patient Disposition: Home Condition: Stable Instructions: Weakness (ED) Additional Instructions: Return ER if you have recurrent abdominal pain, you cannot keep down food or water, you lose consciousness, or you have additional concerns. Patient Language: [place] Island[place] Prescriptions: No Action folic acid 400 mcg tablet 0.4 mg PO BID Vitamin C PO Vitamin E PO (DME) blood-glucose meter [OneTouch Ultra2 Meter] Misc See Rx Instructions .Route Qty: 1 0RF Rx Instructions: As directed (DME) OneTouch Ultra Test Strip See Rx Instructions .Route Qty: 100 2RF Rx Instructions: Use to test glucose once daily (DME) lancets 30 gauge misc See Rx Instructions .Route Qty: 100 2RF Rx Instructions: Use once daily to test blood glucose Ozempic 0.25 mg or 0.5 mg (2 mg/3 mL) pen injector 0.25 mg subcut WEEKLY Qty: 3 0RF Rx Instructions: for 4 weeks atorvastatin [Lipitor] 20 mg tablet 20 mg PO DAILY Qty: 90 3RF metoprolol succinate 100 mg tablet extended release 24 hr See Rx Instructions .ROUTE .COMPLEX Qty: 90 1RF Dose Instruction: TAKE 1 TABLET BY MOUTH DAILY Rx Instructions: TAKE 1 TABLET BY MOUTH DAILY amlodipine 5 mg tablet 5 mg PO DAILY Qty: 90 2RF oxycodone-acetaminophen 7.5-325 mg tablet 1 tablet PO Q4H PRN (Reason: pain) Qty: 150 0RF Rx Instructions: Can take up to 5 per day (DME) Contour Test Strips Strip See Rx Instructions .Route Qty: 100 6RF Rx Instructions: Use to check blood sugar once daily lisinopril 40 mg tablet See Rx Instructions .ROUTE .COMPLEX Qty: 90 0RF Dose Instruction: TAKE 1 TABLET BY MOUTH DAILY Rx Instructions: TAKE 1 TABLET BY MOUTH DAILY Follow-up/Referrals: Logan Luu MD [Primary Care Provider] - 1 Week
== END 2024-09-29 12:30 | disposition home or self-care (01) ==
PROVIDERS: Emergency Provider Emergency Medicine; PCP Family Medicine Adolescent Medicine
DX: R53.1 Weakness (principal)
CPT/HCPCS: 36415; 71046; 74177; 80053; 81001; 85025; 85055; 85610; 85730; 93005; 99284; Q9967

== ENCOUNTER 2025-04-10 09:15 | Emergency (ER) | payer OTHER, SELFPAY ==
[2025-04-10] VITALS (20 sets, daily range): BP systolic 120–134; BP diastolic 51–62; PULSE 93–107; RESP 10–25; TEMP 36.6; O2SAT 94–100
--- NOTE | ~2025-04-10 | CT_ITS ---
EXAM/PROCEDURE: CTA abdomen pelvis HISTORY: low GI bleed COMPARISON: None available. TECHNIQUE: Contrast-enhanced CT angiography of the abdomen and pelvis performed FINDINGS: The visualized portions of the lower thoracic, and abdominal aorta are normal in size and enhancement other than mild to moderate scattered atherosclerotic plaque disease. The celiac axis, both mesenteric and both renal arteries are also moderately diseased but patent. Pelvic inflow and outflow arteries are patent. No clear extravasation of contrast to confirm active bleeding. The bowel gas pattern is nonobstructive with no free air or pneumatosis. Small amount of free fluid present in the lower pelvis. Moderately severe wall thickening present throughout the descending and proximal sigmoid colon with diffuse pericolonic inflammatory strandy changes. The visualized portions the lower chest appear normal. The bones appear stable including 50% chronic compression fracture of T12 and great 1 anterolisthesis L4 and L5. Cholecystectomy clips. No bulky mesenteric or retroperitoneal lymphadenopathy or masses seen. No hydroureteronephrosis. IMPRESSION: 1. No definite extravasation of contrast to confirm active bleeding. If there is concern for continued bleeding, consider correlation with the red blood cell tag scintigraphy for optimal sensitivity. 2. Diffuse inflammatory appearing changes in the left hemicolon which could be associated with inflammatory or infectious colitis. Early ischemic bowel is not excluded. 3. Mild to moderate scattered atherosclerotic plaque disease. Otherwise normal- appearing aorta. Reviewed, dictated and finalized at location A. ER HELPER IMPRESSION: 1. No definite extravasation of contrast to confirm active bleeding. If there i s concern for continued bleeding, consider correlation with the red blood cell tag scintigraphy for optimal sensitivity. 2. Diffuse inflammatory appearing changes in the left hemicolon which could be associated with inflammatory or infectious colitis. Early ischemic bowel is not excluded. 3. Mild to moderate scattered atherosclerotic plaque disease. Otherwise normal- appearing aorta.
[2025-04-10 09:54] LABS: Hematocrit 39.5 % (37.0-47.0); Hemoglobin 13.1 g/dL (12.0-15.0); Immature Granulocyte Percent A 0.2 % (0-0.5); Immature Platelet Fraction Pct 5.5 % (0.9-11.2); Lymphocytes Absolute Auto 0.96 K/mm3 (0.9-3.2); Mean Corpuscular HGB Conc 33.2 g/dl (32-36); Mean Corpuscular Hemoglobin 31.2 pg (26-34); Mean Corpuscular Volume 94.0 fl (80-100); Nucleated Red Blood Cells Absolute Auto 0.000 K/mm3 (0.0-0.012); Nucleated Red Blood Cells Perc 0.0 % (0.0-0.2); Platelet Count Result 104 k/mm3 (150-375); Red Blood Count 4.20 M/mm3 (4.2-5.4); White Blood Count 8.3 K/mm3 (4.5-10.0)
--- NOTE | 2025-04-10 10:01 | ED_ITS ---
HPI - GI Bleed General Chief complaint: GI Bleed Stated complaint: rectal bleeding Time Seen by Provider: 04/10/25 09:43 History of Present Illness HPI Narrative: 79-year-old female presents ER complaining of brewing blood in her stool. Patient states she has been experiencing constipation for several days, has taken multiple doses of Ex-Lax. States has experienced several wound has small stools under dark in color. States that she noticed a scant amount of bright red blood on the toilet paper yesterday, and again this morning. Reports right lower quadrant abdominal pain. Denies dysuria, urinary frequency or urgency. Denies his anticoagulants Related Data Home Medications ?Medication ?Instructions ?Recorded ?Confirmed ?Last Taken ?Type folic acid 400 mcg tablet 0.4 mg PO BID 08/25/2311/01 Unknown History Vitamin C PO 09/26/24 11/01/24 Unknown History Vitamin E PO 09/26/24 11/01/24 Unknown History Allergies Allergy/AdvReac Type Severity Reaction Status Date / Time diclofenac AdvReac Intermediate Dizziness Verified 04/10/25 09:31 duloxetine AdvReac Intermediate nausea and Verified 04/10/25 09:31 diarrhea indomethacin AdvReac Intermediate Headache Verified 04/10/25 09:31 amoxicillin AdvReac Unknown YEAST Verified 04/10/25 09:31 INFECTIONS Review of Systems 2 Review of Systems: All systems reviewed & are unremarkable except as noted in HPI and below PMFSH Surgical History Surgical History History of lumbar surgery (09/2022) 3 level laminectomy, foraminotomy and foraminal decompression History of hemorrhoidectomy History of carpal tunnel surgery of left wrist 2016 History of section x2 History of cholecystectomy 1996 History of total bilateral knee replacement Left 2011, Right 2012 Family History Family History Mother Family history of diabetes mellitus in first degree relative Diabetes mellitus Heart disease Daughter Asthma Sibling Cerebrovascular accident Social History Social History Smoking status: Never smoker Second hand tobacco smoke exposure: No Alcohol intake: never Substance use: never Substance use type: does not use Lack of Transportation: No Lack of Food: Never True Current Housing: I Have Housing Concerned About Future Housing: No Difficulty Paying Gas/Electric Bills: No Difficulty Paying for Meds: No Currently Unemployed: No Education: High School Diploma/GED Difficulty w/ Childcare or Family Care: No Living arrangements: with family Occupation/Education: retired Gender identity (if verbalized by the patient): Female Sexual Orientation (if Verbalized by the Patient): Straight or Heterosexual Spiritual care concerns: No Agree to blood products: Yes Exam 2 Const: General: alert Orientation/consciousness: patient oriented x3 L imitations: no limitations Other: Chronically ill-appearing Resp: Effort & Inspection: normal respiratory effort Auscultation: clear to auscultation bilaterally Cardio: Rate: regular rate Rhythm: regular rhythm GI: GI Palp: Yes Soft to palpation and Yes Tenderness to palpation present (GI) Auscultation: normal bowel sounds Other: TTP to right lower quadrant Back/Spine/Pelvis: Back: no CVA tenderness Skin: General skin exam: normal color Rashes: no rashes Neuro: General: patient oriented x3, moves all extremities and CN's II-XI intact bilaterally Psych: Mental Status: mental status grossly normal Affect: normal affect Course Vital Signs Vital signs: Vital Signs Temperature 36.6 C 04/10/25 09:27 Pulse Rate 97 04/10/25 09:27 Respiratory Rate 20 04/10/25 09:27 Blood Pressure 125/51 L 04/10/25 09:27 Pulse Oximetry 100 04/10/25 09:27 Oxygen Delivery Room Air 04/10/25 09:27 Temperature 36.6 C 04/10/25 09:27 Pulse Rate 104 H 04/10/25 11:07 Respiratory Rate 16 04/10/25 11:07 Blood Pressure 120/62 04/10/25 11:07 Pulse Oximetry 100 04/10/25 11:07 Oxygen Delivery Room Air 04/10/25 09:27 [facility] MDM Narrative Medical decision making narrative: In summary: 79 year old female presented to the ER c/o bright red blood in her stool since yesterday. CT abd/pelvis shows no evidence of a GI bleed. Lab work was reassuring. Exam shows evidence of a external hemorrhoid. Case discussed with General surgery regarding CT results, likely an over read. Plan is to discharge patient home in stable condition. Differential Diagnosis Differential Diagnosis: Hemorrhoids, seizure, lower GI bleed, constipation Lab Data 04/10/25 09:47 04/10/25 09:47 Labs: Lab Results 04/10/25 04/10/25 04/10/25 Range/Units 09:47 11:47 12:35 WBC 8.3 (4.5-10.0) K/mm3 RBC 4.20 (4.2-5.4) M/mm3 Hgb 13.1 (12.0-15.0) g/dL Hct 39.5 (37.0-47.0) % MCV 94.0 (80-100) fl MCH 31.2 (26-34) pg MCHC 33.2 (32-36) g/dl RDW 12.7 (11.5-14.5) % Plt Count 104 L (150-375) k/mm3 MPV 11.0 H (7.4-10.4) fl Immature Gran % (Auto) 0.2 (0-0.5) % Neut % (Auto) 82.9 H (45.5-73.1) % Lymph % (Auto) 11.6 L (18.3-44.2) % [place] % (Auto) 4.8 (2.6-8.5) % Eos % (Auto) 0.4 (0-4.4) % Baso % (Auto) 0.1 L (0.2-1.2) % Lymph # (Auto) 0.96 (0.9-3.2) K/mm3 [place] # (Auto) 0.4 (0.1-0.6) K/mm3 Eos # (Auto) 0.0 (0-0.3) K/mm3 Baso # (Auto) 0.0 (0.0-0.1) K/mm3 Abs Immat Gran (auto) 0.02 (0.00-0.031) K/mm3 Absolute Neuts (auto) 6.9 H (1.3-6.7) K/mm3 Absolute Nucleated RBC 0.000 (0.0-0.012) K/mm3 Nucleated RBC % 0.0 (0.0-0.2) % % Immature Plt Fraction 5.5 (0.9-11.2) % PT 13.6 (11.1-14.7) Seconds INR 1.0 APTT 24.0 (22.3-36.8) Seconds Sodium 139 (137-145) mmol/L Potassium 4.6 (3.4-5.0) mmol/L Chloride 106 (98-107) mmol/L Carbon Dioxide 28 (22-30) mmol/L Anion Gap 5 (4-12) mmol/L BUN 21 H (7-17) mg/dL Creatinine 0.90 (0.7-1.0) mg/dL Estim Creat Clear Calc 45 ml/min Estimated GFR 60 (59 - ) Glucose 154 H (65-110) mg/dL Lactic Acid 1.0 (0.7-2.0) mmol/L Calcium 10.1 (8.4-10.2) mg/dL Total Bilirubin 1.4 H (0.2-1.3) mg/dL AST 28 (14-36) U/L ALT 26 (6-35) U/L Alkaline Phosphatase 107 (38-126) U/L Total Protein 7.5 (6.3-8.2) g/dL Albumin 4.2 (3.5-5.1) g/dL Urine Color Yellow (Yellow) Urine Appearance Clear (Clear) Urine pH 6.5 (5.0-9.0) Ur Specific [place] 1.029 (1.001-1.035) Urine Protein Negative (Negative) mg/dL Urine Glucose (UA) Negative (Negative) mg/dL Urine Ketones Negative (Negative) mg/dL Ur Blood (Man) Negative (Negative) Urine Nitrate Negative (Negative) Urine Bilirubin Negative (Negative) Urine Urobilinogen 0.2 (<2.0) mg/dL Leukocyte Esterase Rfl Trace H (Negative) MARIBETH/UL Urine RBC 0-2 (0-2) /hpf Urine WBC 0-5 (0-3) /hpf Ur Squamous Epith Cells None seen (Few) /hpf Urine Bacteria None seen /hpf Urine Casts 3-5 Blood Type B Negative Antibody Screen Negative Imaging Data Radiologist's impression: ITS Impressions Abdomen/Pelvis CTA 04/10/25 10:51 IMPRESSION: 1. No definite extravasation of contrast to confirm active bleeding. If there is concern for continued bleeding, consider correlation with the red blood cell tag scintigraphy for optimal sensitivity. 2. Diffuse inflammatory appearing changes in the left hemicolon which could be associated with inflammatory or infectious colitis. Early ischemic bowel is not excluded. 3. Mild to moderate scattered atherosclerotic plaque disease. Otherwise normal- appearing aorta. Discharge Plan Discharge Clinical Impression: Hemorrhoid Constipation Qualifiers: Constipation type: unspecified constipation type Qualified Code(s): K59.00 - Constipation, unspecified Patient Disposition: Home Condition: Stable Instructions: Antibiotic Form, Constipation (ED), Hemorrhoids (ED) Patient Language: Urdu Prescriptions: New magnesium citrate [OneLAX Magnesium Citrate] Solution 300 ml PO DAILY PRN (Reason: constipation) Qty: 296 0RF No Action folic acid 400 mcg tablet 0.4 mg PO BID Vitamin C PO Vitamin E PO (DME) OneTouch Ultra Test Strip See Rx Instructions .Route Qty: 100 2RF Rx Instructions: Use to test glucose once daily (DME) lancets 30 gauge misc See Rx Instructions .Route Qty: 100 2RF Rx Instructions: Use once daily to test blood glucose atorvastatin [Lipitor] 20 mg tablet 20 mg PO DAILY Qty: 90 3RF (DME) Contour Test Strips Strip See Rx Instructions .Route Qty: 100 6RF Rx Instructions: Use to check blood sugar once daily metoprolol succinate 100 mg tablet extended release 24 hr See Rx Instructions .ROUTE .COMPLEX Qty: 90 1RF Dose Instruction: TAKE 1 TABLET BY MOUTH DAILY Rx Instructions: TAKE 1 TABLET BY MOUTH DAILY (DME) blood-glucose meter [OneTouch Ultra2 Meter] Misc See Rx Instructions .ROUTE .COMPLEX Qty: 1 0RF Dose Instruction: USE DIRECTED Rx Instructions: USE DIRECTED lisinopril 40 mg tablet See Rx Instructions .ROUTE .COMPLEX Qty: 90 1RF Dose Instruction: TAKE 1 TABLET BY MOUTH DAILY Rx Instructions: TAKE 1 TABLET BY MOUTH DAILY oxycodone-acetaminophen 7.5-325 mg tablet 1 tablet PO Q4H PRN (Reason: pain) Qty: 150 0RF Rx Instructions: Can take up to 5 per day semaglutide 1 mg/dose (4 mg/3 mL) pen injector 1 mg subcut WEEKLY Qty: 3 0RF Rx Instructions: for 4 weeks amlodipine 5 mg tablet 5 mg PO DAILY Qty: 90 2RF Follow-up/Referrals: Denice Gomes MD [Physician, General Surgery] Logan Luu MD [Primary Care Provider, Family Practice] Time of Disposition: 13:05
[2025-04-10 10:13] LABS: INR 1.0; Prothrombin Time 13.6 Seconds (11.1-14.7)
[2025-04-10 10:14] LABS: Partial Thromboplastin Time 24.0 Seconds (22.3-36.8)
[2025-04-10 10:18] LABS: Alanine Aminotransferase 26 U/L (6-35); Albumin Level 4.2 g/dL (3.5-5.1); Alkaline Phosphatase 107 U/L (38-126); Anion Gap 5 mmol/L (4-12); Aspartate Amino Transferase 28 U/L (14-36); Bilirubin,Total 1.4 mg/dL (0.2-1.3); Blood Urea Nitrogen 21 mg/dL (7-17); Calcium 10.1 mg/dL (8.4-10.2); Carbon Dioxide 28 mmol/L (22-30); Chloride 106 mmol/L (98-107); Estimated CRCL calculation 45 ml/min; Estimated Glomerular Filt Rate 60; Glucose 154 mg/dL (65-110); Potassium 4.6 mmol/L (3.4-5.0); Sodium 139 mmol/L (137-145); Total Protein 7.5 g/dL (6.3-8.2)
[2025-04-10 11:56] LABS: Add Urine Microscopic? YES; Appearance Urine Clear (Clear); Glucose Urine UA Negative (Negative); Leukocyte Esterase Ur Trace LEU/UL (Negative); Nitrate Urine Negative (Negative); Specific Grav Ur 1.029 (1.001-1.035)
== END 2025-04-10 13:17 | disposition home or self-care (01) ==
PROVIDERS: Emergency Provider Nurse Practitioner Family; PCP Family Medicine Adolescent Medicine
DX: K59.00 Constipation, unspecified (principal); K64.4 Residual hemorrhoidal skin tags; Z90.49 Acquired absence of other specified parts of digestive tract; Z96.653 Presence of artificial knee joint, bilateral
CPT/HCPCS: 36415; 74174; 80053; 81001; 83605; 85025; 85055; 85610; 85730; 86850; 86900; 86901; 99284; Q9967